=== PATIENT | female | born 1945 | race Caucasian/White ===

== ENCOUNTER → 2017-09-01 10:33 | Outpatient (CLI) | payer MEDICARE, OTHER, SELFPAY ==
[2017-09-01 11:21] LABS: Cholesterol 207 mg/dL (140-199); Glucose 83 mg/dL (80-110); HDL Cholesterol 66 mg/dL (40-60); LDL Cholesterol Calculated 119 mg/dL (<100); Triglycerides 110 mg/dL (35-150)
== END ==
PROVIDERS: PCP Family Medicine; Visit Provider Family Medicine
DX: Z13.6 Encounter for screening for cardiovascular disorders (principal); Z13.1 Encounter for screening for diabetes mellitus
CPT/HCPCS: 36415; 80061; 82947

== ENCOUNTER → 2017-09-06 10:27 | Outpatient (CLI) | payer MEDICARE, OTHER, SELFPAY ==
--- NOTE | 2017-09-06 | DI.MG.S_ITS ---
BILATERAL DIGITAL SCREENING MAMMOGRAM 3D/2D WITH CAD: 09/06/2017 CLINICAL: Patient presents for routine screening. S/P bilateral augmentation. Comparison is made to exams dated: 09/05/2016 mammogram, 09/03/2015 mammogram, and 08/25/2015 mammogram - [facility]. The tissue of both breasts is heterogeneously dense. This may lower the sensitivity of mammography. Current study was also evaluated with a Computer Aided Detection (CAD) system. Bilateral breast implants are intact. No significant masses, calcifications, or other findings are seen in either breast. There has been no significant interval change. IMPRESSION: NEGATIVE There is no mammographic evidence of malignancy. A 1 year screening mammogram is recommended. This exam was interpreted at Station ID: [id number]. NOTE: For mammograms, a report in lay terms will be sent to the patient. Approximately 15% of breast malignancies will not be visualized mammographically. In the management of a palpable breast mass, a negative mammogram must not discourage biopsy of a clinically suspicious lesion. Electronically Signed By: Ant miramontes/akila:09/06/2017 12:06:34 letter sent: Normal Exam ACR BI-RADS Category 1: Negative 3341F
== END ==
PROVIDERS: Family Provider Family Medicine; PCP Family Medicine; Visit Provider Family Medicine
DX: Z12.31 Encounter for screening mammogram for malignant neoplasm of breast (principal); Z98.82 Breast implant status
CPT/HCPCS: 77063; 77067

== ENCOUNTER → 2018-09-07 08:46 | Outpatient (CLI) | payer MEDICARE, OTHER, SELFPAY ==
--- NOTE | 2018-09-07 | DI.MG.S_ITS ---
BILATERAL DIGITAL SCREENING MAMMOGRAM 3D/2D WITH CAD WITH AUGMENTATION: 09/07/2018 CLINICAL: Patient presents for routine screening. S/P bilateral augmentation. Comparison is made to exams dated: 09/06/2017 mammogram, 09/05/2016 mammogram, and 09/03/2015 mammogram - [facility]. The tissue of both breasts is heterogeneously dense. This may lower the sensitivity of mammography. Current study was also evaluated with a Computer Aided Detection (CAD) system. Bilateral breast implants are intact. No significant masses, calcifications, or other findings are seen in either breast. There has been no significant interval change. IMPRESSION: NEGATIVE There is no mammographic evidence of malignancy. A 1 year screening mammogram is recommended. This exam was interpreted at Station ID: [id number]. NOTE: For mammograms, a report in lay terms will be sent to the patient. Approximately 15% of breast malignancies will not be visualized mammographically. In the management of a palpable breast mass, a negative mammogram must not discourage biopsy of a clinically suspicious lesion. Electronically Signed By: Ant miramontes/akila:09/07/2018 17:39:24 letter sent: Normal Exam ACR BI-RADS Category 1: Negative 3341F
[2018-09-07 09:42] LABS: BUN Creatinine Ratio 26.7 (6-22); Blood Urea Nitrogen 24 mg/dL (7-17); Carbon Dioxide 29 mmol/L (22-32); Chloride 104 mmol/L (98-107); Cholesterol 242 mg/dL (140-199); Estimated Glomerular Filt Rate > 60.0 mL/min (>60); Glucose 91 mg/dL (80-110); HDL Cholesterol 69 mg/dL (40-60); HEMOLYSIS < 15 (0-50); LDL Cholesterol Calculated 132 mg/dL (<100); Potassium 4.8 mmol/L (3.4-5.1); Sodium 142 mmol/L (137-145); Triglycerides 204 mg/dL (35-150)
== END ==
PROVIDERS: PCP Family Medicine; Visit Provider Family Medicine
DX: Z12.31 Encounter for screening mammogram for malignant neoplasm of breast (principal); Z98.82 Breast implant status; Z13.6 Encounter for screening for cardiovascular disorders; Z13.1 Encounter for screening for diabetes mellitus
CPT/HCPCS: 36415; 77063; 77067; 80048; 80061

== ENCOUNTER → 2018-11-26 09:42 | Outpatient (CLI) | payer MEDICARE, OTHER, SELFPAY | PROVIDERS: PCP Family Medicine; Visit Provider Family Medicine | DX: M85.851 Other specified disorders of bone density and structure, right thigh (principal); Z78.0 Asymptomatic menopausal state; Z82.62 Family history of osteoporosis | CPT/HCPCS: 77080 ==

== ENCOUNTER → 2019-09-09 09:44 | Outpatient (CLI) | payer MEDICARE, OTHER, SELFPAY ==
[2019-09-09 11:25] LABS: Add Manual Diff / Slide Review NO; Basophils Absolute Auto 100 /uL (0-100); Eosinophils Absolute Auto 200 /uL (0-450); Eosinophils Percent Auto 4.6 % (2-4); Hematocrit 39.1 % (36-46); Hemoglobin 13.2 g/dL (12.0-16.0); Lymphocytes Absolute Auto 1500 /uL (1100-4500); Lymphocytes Percent Auto 27.7 % (25-40); Mean Corpuscular HGB Conc 33.8 % (30-36); Mean Corpuscular Hemoglobin 34.2 PG (26-34); Mean Corpuscular Volume 101.2 fL (80-100); Monocytes Absolute Auto 600 /uL (0-900); Monocytes Percent Auto 10.5 % (3-14); Neutrophils Absolute Auto 3000 /uL (1500-7000); Neutrophils Percent Auto 56.2 % (50-75); Platelet Count 312 X10^3/uL (150-400); Red Blood Cell Count 3.87 X10^6/uL (4.0-5.2); Red Cell Distribution Width 13.6 % (11.6-14.8); White Blood Cell Count 5.4 X10^3/uL (4.5-11.0)
[2019-09-09 12:13] LABS: BUN Creatinine Ratio 21.7 (6-22); Blood Urea Nitrogen 15 mg/dL (7-17); Calcium 9.5 mg/dL (8.4-10.2); Carbon Dioxide 27 mmol/L (22-32); Chloride 108 mmol/L (98-107); Cholesterol 225 mg/dL (140-199); Estimated Glomerular Filt Rate > 60.0 mL/min (>60); Glucose 88 mg/dL (80-110); HDL Cholesterol 64 mg/dL (40-60); HEMOLYSIS < 15 (0-50); LDL Cholesterol Calculated 133 mg/dL (<100); Sodium 140 mmol/L (137-145); Triglycerides 141 mg/dL (35-150)
== END ==
PROVIDERS: PCP Family Medicine; Referring Provider Family Medicine; Visit Provider Family Medicine
DX: Z13.6 Encounter for screening for cardiovascular disorders (principal); E78.2 Mixed hyperlipidemia; Z79.1 Long term (current) use of non-steroidal anti-inflammatories (NSAID); R71.8 Other abnormality of red blood cells
CPT/HCPCS: 36415; 80048; 80061; 85025

== ENCOUNTER → 2019-09-10 10:57 | Outpatient (CLI) | payer MEDICARE, OTHER, SELFPAY ==
--- NOTE | 2019-09-10 | DI.MG.S_ITS ---
BILATERAL DIGITAL SCREENING MAMMOGRAM 3D/2D WITH CAD WITH AUGMENTATION: 09/10/2019 CLINICAL: Routine screening. Comparison is made to exams dated: 09/07/2018 mammogram, 09/06/2017 mammogram, 09/05/2016 mammogram, 08/25/2015 mammogram - [facility], and 08/22/2014 mammogram - [facility]. The tissue of both breasts is heterogeneously dense. This may lower the sensitivity of mammography. Current study was also evaluated with a Computer Aided Detection (CAD) system. Bilateral breast implants are intact. No significant masses, calcifications, or other findings are seen in either breast. There has been no significant interval change. IMPRESSION: NEGATIVE There is no mammographic evidence of malignancy. A 1 year screening mammogram is recommended. This exam was interpreted at Station ID: [id number]. NOTE: For mammograms, a report in lay terms will be sent to the patient. Approximately 15% of breast malignancies will not be visualized mammographically. In the management of a palpable breast mass, a negative mammogram must not discourage biopsy of a clinically suspicious lesion. Electronically Signed By: Gabino khan/akila:09/10/2019 14:07:42 letter sent: Normal Exam ACR BI-RADS Category 1: Negative 3341F
== END ==
PROVIDERS: PCP Family Medicine; Referring Provider Family Medicine; Visit Provider Family Medicine
DX: Z12.31 Encounter for screening mammogram for malignant neoplasm of breast (principal)
CPT/HCPCS: 77063; 77067

== ENCOUNTER → 2019-09-20 11:11 | Outpatient (CLI) | payer MEDICARE, OTHER, SELFPAY ==
--- NOTE | 2019-09-20 | DI.RAD.S_ITS ---
PROCEDURE: XR KNEE LT 3V INDICATIONS: Chronic PAIN OF LEFT KNEE TECHNIQUE: 3 views of the knee were acquired. COMPARISON: [facility], CR, XR HIP W PEL IF DONE LT 2V, 09/20/2019, 11:17. FINDINGS: Bones: No fractures or dislocations. No suspicious bony lesions. Mild joint space narrowing of the medial compartment. Soft tissues: Trace joint effusion. No suspicious soft tissue calcifications. 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 Trace effusion. Dictated by: Gabino Fernandez M.D. on 09/20/2019 at 13:08 Approved by: Gabino Fernandez M.D. on 09/20/2019 at 13:09
--- NOTE | 2019-09-20 | DI.RAD.S_ITS ---
PROCEDURE: XR HIP W PEL IF DONE LT 2V INDICATIONS: LEFT HIP PAIN TECHNIQUE: AP pelvis with lateral view(s) of the left hip(s). COMPARISON: None. FINDINGS: Bones: No fractures or dislocations. Pelvic ring appears intact. No suspicious bony lesions. No avascular necrosis of the lateral head. Mild degenerative change bilaterally. Soft tissues: The visualized bowel gas pattern is normal. No suspicious soft tissue calcifications. Clips in the lower abdomen. IMPRESSION: No acute osseous abnormality. Mild symmetric hip DJD. Dictated by: Gabino Fernandez M.D. on 09/20/2019 at 13:07 Approved by: Gabino Fernandez M.D. on 09/20/2019 at 13:08
== END ==
PROVIDERS: PCP Family Medicine; Referring Provider Family Medicine; Visit Provider Family Medicine
DX: M25.552 Pain in left hip (principal); M25.562 Pain in left knee; M16.0 Bilateral primary osteoarthritis of hip; M17.12 Unilateral primary osteoarthritis, left knee; G89.29 Other chronic pain
CPT/HCPCS: 73502; 73562

== ENCOUNTER → 2020-05-18 12:59 | Outpatient (CLI) | payer MEDICARE, OTHER, SELFPAY ==
[2020-05-18 15:59] LABS: COVID19 -Nasal RAPID Negative (Negative)
== END ==
PROVIDERS: PCP Family Medicine; Visit Provider Nurse Practitioner
DX: Z01.812 Encounter for preprocedural laboratory examination (principal); Z20.822 Contact with and (suspected) exposure to COVID-19
CPT/HCPCS: 87635; C9803

== ENCOUNTER 2020-05-20 08:19 | Day surgery (SDC) | payer MEDICARE, OTHER, SELFPAY ==
--- NOTE | 2020-05-20 | PATH_ITS ---
[facility] Accession Number: [id number] . 01 Material submitted: . PART A: gastrointestinal site - GASTRIC ANTRUM NODULE PART B: gastrointestinal site - GASTRIC ANTRUM AND BODY BIOPSY . 01 Clinical history: . B: BIOPSY FOR H.PYLORI . 02 Diagnosis: A. Stomach, Antral Nodule, Biopsy: Most consistent with early gastric hyperplastic polyp. No evidence of Helicobacter organisms on H/E stain. Negative for intestinal metaplasia. Negative for dysplasia or malignancy. . B. Stomach, Biopsies: Gastric antral and body mucosa with mild chronic inflammation. Negative for Helicobacter organisms by immunohistochemistry. Negative for intestinal metaplasia. Negative for dysplasia or malignancy. [facility] 05/26/2020 1422 Local . 02 Electronically signed: . Yaya Arriola MD, PhD, Pathologist NPI- [id number] . 01 Gross description: . Part A: GASTRIC ANTRUM NODULE: Received in formalin are 4 fragment(s) of alva, soft tissue measuring 0.1 x 0.1 x 0.1 cm to 0.2 x 0.2 x 0.2 cm submitted entirely in 1 cassette(s) Part B: GASTRIC ANTRUM AND BODY BIOPSY: Received in formalin are 4 fragment(s) of alva, soft tissue measuring 0.1 x 0.1 x 0.1 cm to 0.2 x 0.2 x 0.2 cm submitted entirely in 1 cassette(s) /LOUIE 05/23/2020 0140 Local . 02 Microscopic: . B. An immunohistochemical stain was performed to evaluate for Helicobacter organisms and is negative. The control stain showed appropriate reactivity. . * This test was developed and its performance characteristics determined by [employer]. It has not been cleared or approved by the U.S. Food and Drug Administration. The FDA has determined that such clearance or approval is not necessary. This test is used for clinical purposes. It should not be regarded as investigational or for research. . 02 Pathologist provided ICD-10: K29.70, K31.7 . 02 CPT . 874910, 602681, J29582 Performed at: 01 [facility] [address] [id number] MD Ant Guerrero MD Phone: [phone] Performed at: [address] [place] [id number] [place] [id number] MD Rosalie Gordillo MD Phone: [phone]
--- NOTE | 2020-05-20 07:54 | PM.HP.1 ---
History of Present Illness History of Present Illness Date Patient Seen: 05/20/20 Chief complaint: SDC Narrative: 74-year-old female seen by our service on 04/15/2020 due to epigastric pain not responding to PPI. She has a history of TIFF in 2010. She increased her dosing of omeprazole to twice daily which appears to have helped her symptoms. Patient History Medical History (Updated 05/20/20 @ 08:53 by Syeda Robin RN) Breast implant status Colon polyps Fractured skull GERD (gastroesophageal reflux disease) Surgical History (Updated 05/20/20 @ 08:52 by Syeda Robin RN) History of cholecystectomy History of facial surgery History of fundoplication History of hysterectomy History of rotator cuff surgery History of sinus surgery Family & Social History Family History (Updated 05/20/20 @ 08:54 by Syeda Robin RN) Father Alzheimer disease Macular degeneration disease Mother Colostomy in place Meds Home Medications and Allergies Home Medications Medication Instructions Recorded Confirmed Type alendronate 70 mg PO QWEEK 05/20/20 05/20/20 History ascorbic acid (vitamin C) [Vitamin 250 mg PO DAILY 05/20/20 05/20/20 History C] biotin 5,000 mcg SUBLINGUAL DAILY 05/20/20 05/20/20 History calcium 600 mg PO DAILY 05/20/20 05/20/20 History cholecalciferol (vitamin D3) 50 mcg PO DAILY 05/20/20 05/20/20 History [Vitamin D3] omeprazole 20 mg PO BID 05/20/20 05/20/20 History vitamin A-vitamin C-vit E-min 1 tab PO DAILY 05/20/20 05/20/20 History [Ocuvite] Allergies Allergy/AdvReac Type Severity Reaction Status Date / Time No Known Drug Allergies Allergy Verified 05/20/20 09:19 Exam Narrative Exam Narrative: General: Patient is well developed, not in apparent distress Cardiovascular: Regular rate and rhythm, no murmurs, rubs, or gallops; no evidence of edema; no palpable abdominal aortic aneurysm Gastrointestinal: Normoactive bowel sounds, soft, nontender, nondistended, no rebound tenderness, no hepatosplenomegaly, no evidence of hernia Assessment & Plan Assessment & Plan narrative: 74-year-old female here for further evaluation of epigastric pain. Regarding the procedure(s), the risks and potential complications, benefits, and alternatives (including not doing the procedure) were discussed with the patient. The risks include but are not limited to bleeding, splenic injury, infection, perforation which may require surgical intervention, missed lesions, and adverse reactions to sedative medicines. After a question and answer period, the patient agreed to proceed with the procedure(s) and gives informed consent.
[2020-05-20] MEDS: SODIUM CHLORIDE 0.9% 1,000 ML 70 ML IV (08:44)
[2020-05-20 09:00] VITALS: BP 127/74; PULSE 72; RESP 18; TEMP 36.2; O2SAT 99; BMI 26.5
--- NOTE | 2020-05-20 09:26 | P.OP.ENDO_ITS ---
Operative Date/Time/Diagnoses Date of procedure: 05/20/20 Procedure Notes Procedure in detail: Surgeon: Mayur Grimm MD Procedure: Esophagogastroduodenoscopy with biopsy Preoperative diagnosis: Epigastric pain, history of GERD Postoperative diagnosis: Fundoplication no longer present; antral nodule status post biopsy; gastrics biopsies taken to check for H pylori Medications: Conscious sedation using 6 mg IV of Midazolam and 100 mcg IV of Fentanyl; 4% lidocaine gargle; 4 mg IV ondansetron Preanesthesia Assessment An H and P was performed/updated and the Px?s ASA class is 2. The procedure was discussed in detail with the patient. The potential risks and complications inc luding infection, bleeding, missed lesions, perforation, need for surgery in case of perforation, prolonged hospital stay, and were explained. A brief question and answer period was allotted and once all questions were answered, informed consent was obtained. The patient was brought back to the procedure room and placed on standard monitoring. The patient?s vital signs were monitored continuously throughout the entire procedure. Prior to starting, a timeout was performed to confirm the patient?s identity, allergies, medications, and procedure. Procedure in detail The patient was placed in left lateral decubitus position and a bite block was inserted. The tip of the upper endoscope was placed into the mouth and advanced without difficulty under direct visualization into the esophagus. Esophagus: The esophageal mucosa appeared normal. The Z-line was regular at 40 cm Stomach: Mucosal antral nodule measuring 15 mm status post biopsy; gastric biopsies from the body and antrum taken to rule out H pylori; retroflexion was performed in the stomach which revealed evidence of prior TIF however the fundoplication does not appear to be present anymore Duodenum: Normal visualized duodenal mucosa to the 2nd portion The patient tolerated the procedure well and will be brought back to the recovery area to be discharged once criteria are met. The total physician intraservice time was 10 minutes. Complications There were no complications and estimated blood loss was minimal. Recommendations: Resume previous diet Continue outPx medications Change timing of omeprazole doses to 30 minutes prior to breakfast and 30 minutes prior to dinner Follow up pathology results Keep follow-up appointment with me (MELISSA GI) as previously scheduled An emergency contact number was given to the patient for any complications related to the procedure
[2020-05-20] MEDS: LIDOCAINE 4% SOLN 50 ML 20 ML TOP (09:35)
[2020-05-20] MEDS: ONDANSETRON 4 MG/2 ML INJ IV (09:38)
[2020-05-20] MEDS: fentaNYL 100 MCG/2 ML INJ IV (09:40)
[2020-05-20] MEDS: MIDAZOLAM 5 MG/5 ML VIAL IV ×2 (09:42→09:53)
[2020-05-20 09:59] VITALS: BP 100/52; PULSE 67; RESP 10; TEMP 35.8; O2SAT 98
[2020-05-20 10:05] VITALS: BP 95/51; PULSE 68; RESP 11; O2SAT 98
[2020-05-20 10:15] VITALS: BP 98/48; PULSE 70; RESP 10; O2SAT 100
[2020-05-20] MEDS: SODIUM CHLORIDE 0.9% 1,000 ML 42 ML IV (10:15)
[2020-05-20 10:20] VITALS: BP 106/53; PULSE 72; RESP 15; O2SAT 99
[2020-05-20 10:27] VITALS: BP 114/88; PULSE 71; RESP 18; TEMP 35.9; O2SAT 72
== END 2020-05-20 10:45 | disposition home or self-care (01) ==
PROVIDERS: PCP Family Medicine; Referring Provider Internal Medicine Gastroenterology; Visit Provider Internal Medicine Gastroenterology
PROC: 0DJ08ZZ Inspection of Upper Intestinal Tract, Via Natural or Artificial Opening Endoscopic (ICD-10-PCS; CPT 43235; principal; 2020-05-20 09:30)
DX: K29.50 Unspecified chronic gastritis without bleeding (principal); K21.9 Gastro-esophageal reflux disease without esophagitis
CPT/HCPCS: 43239; J2250; J2405; J3010

== ENCOUNTER → 2020-09-11 10:55 | Outpatient (CLI) | payer MEDICARE, OTHER, SELFPAY ==
--- NOTE | 2020-09-11 | DI.MG.S_ITS ---
BILATERAL DIGITAL SCREENING MAMMOGRAM 3D/2D WITH CAD WITH AUGMENTATION: 09/11/2020 CLINICAL: Routine screening. Comparison is made to exams dated: 09/10/2019 mammogram, 09/07/2018 mammogram, and 09/06/2017 mammogram - [facility]. The tissue of both breasts is heterogeneously dense. This may lower the sensitivity of mammography. Current study was also evaluated with a Computer Aided Detection (CAD) system. Bilateral breast implants are intact. No significant masses, calcifications, or other findings are seen in either breast. There has been no significant interval change. IMPRESSION: NEGATIVE There is no mammographic evidence of malignancy. A 1 year screening mammogram is recommended. This exam was interpreted at Station ID: [id number]. NOTE: For mammograms, a report in lay terms will be sent to the patient. Approximately 15% of breast malignancies will not be visualized mammographically. In the management of a palpable breast mass, a negative mammogram must not discourage biopsy of a clinically suspicious lesion. Electronically Signed By: Jerzy ko/akila:09/11/2020 11:51:44 letter sent: Normal Exam ACR BI-RADS Category 1: Negative 3341F
== END ==
PROVIDERS: PCP Family Medicine; Referring Provider Family Medicine; Visit Provider Family Medicine
DX: Z12.31 Encounter for screening mammogram for malignant neoplasm of breast (principal)
CPT/HCPCS: 77063; 77067

== ENCOUNTER → 2020-11-24 10:39 | Outpatient (CLI) | payer MEDICARE, OTHER, SELFPAY ==
[2020-11-24 10:54] LABS: Add Manual Diff / Slide Review NO; Basophils Absolute Auto 0 /uL (0-100); Basophils Percent Auto 0.5 % (0-2); Eosinophils Absolute Auto 100 /uL (0-450); Eosinophils Percent Auto 2.3 % (2-4); Hematocrit 41.1 % (36-46); Hemoglobin 13.7 g/dL (12.0-16.0); Lymphocytes Absolute Auto 1500 /uL (1100-4500); Lymphocytes Percent Auto 25.2 % (25-40); Mean Corpuscular HGB Conc 33.3 % (30-36); Mean Corpuscular Hemoglobin 33.7 PG (26-34); Monocytes Absolute Auto 600 /uL (0-900); Monocytes Percent Auto 11.2 % (3-14); Neutrophils Absolute Auto 3500 /uL (1500-7000); Neutrophils Percent Auto 60.8 % (50-75); Platelet Count 290 X10^3/uL (150-400); Red Blood Cell Count 4.07 X10^6/uL (4.0-5.2); Red Cell Distribution Width 13.8 % (11.6-14.8); White Blood Cell Count 5.7 X10^3/uL (4.5-11.0)
[2020-11-24 11:15] LABS: BUN Creatinine Ratio 31.8 (6-22); Blood Urea Nitrogen 21 mg/dL (7-17); Calcium 9.7 mg/dL (8.4-10.2); Carbon Dioxide 29 mmol/L (22-32); Chloride 104 mmol/L (98-107); Cholesterol 230 mg/dL (140-199); Estimated Glomerular Filt Rate > 60.0 mL/min (>60); Glucose 95 mg/dL (80-110); HDL Cholesterol 82 mg/dL (40-60); HEMOLYSIS < 15 (0-50); LDL Cholesterol Calculated 124 mg/dL (<100); Potassium 4.5 mmol/L (3.4-5.1); Sodium 139 mmol/L (137-145); Triglycerides 121 mg/dL (35-150)
== END ==
PROVIDERS: PCP Family Medicine; Referring Provider Family Medicine; Visit Provider Family Medicine
DX: K21.9 Gastro-esophageal reflux disease without esophagitis (principal); Z13.6 Encounter for screening for cardiovascular disorders; M81.0 Age-related osteoporosis without current pathological fracture
CPT/HCPCS: 36415; 80048; 80061; 85025

== ENCOUNTER → 2020-12-07 10:33 | Outpatient (CLI) | payer MEDICARE, OTHER, SELFPAY | PROVIDERS: PCP Family Medicine; Referring Provider Family Medicine; Visit Provider Family Medicine | DX: Z78.0 Asymptomatic menopausal state (principal); M85.852 Other specified disorders of bone density and structure, left thigh; M85.851 Other specified disorders of bone density and structure, right thigh; M85.88 Other specified disorders of bone density and structure, other site | CPT/HCPCS: 77080 ==

== ENCOUNTER → 2021-05-05 12:28 | Outpatient (CLI) | payer MEDICARE, OTHER, SELFPAY ==
--- NOTE | 2021-05-05 | DI.MRI.S_ITS ---
PROCEDURE: MR KNEE RT WO CON INDICATIONS: Sprain of medial collateral ligament of right knee, initial TECHNIQUE: Noncontrast sagittal PD fast spin echo and T2 fast spin echo with fat saturation, sagittal 3-D FLASH with fat saturation; coronal T1 spin echo and PD fast spin echo with fat saturation, and axial PD fast spin echo with fat saturation through the knee. COMPARISON: None. FINDINGS: Image quality: Excellent. Menisci: Subtle signal abnormality within posterior horn of medial meniscus is seen which does not extend to articulating surface to meet the criteria for focal meniscal tear. Lateral meniscus is intact.. The meniscal root ligaments appear intact. Cruciate ligaments: The anterior and posterior cruciate ligaments appear intact. Medial structures: Low to moderate grade MCL sprain is seen with thickened ligament and surrounding edema . The posterior oblique ligament, semimembranosus tendon insertions, oblique popliteal ligament, and meniscocapsular junction appear intact. Visualized portions of the pes anserinus tendons appear normal. No abnormal bursal fluid. Lateral structures: The lateral collateral ligament, long and short heads of the biceps femoris tendon appear intact. The popliteus tendon appears normal; the popliteofibular ligament appears intact. The posterosuperior and anteroinferior popliteomeniscal fascicles appear intact. The arcuate and fabellofibular ligaments appear intact, on either side of the lateral inferior geniculate artery. Iliotibial band appears normal. Anterior structures: Mild distal quadriceps tendinosis at its superior patellar insertion is seen. Tendinosis is also seen involving proximal patellar tendon at its inferior patellar insertion. Patellar alignment is normal. No femoral trochlear dysplasia or ventral trochlear prominence. No edema in the infrapatellar fat pad. Bones and cartilage: No bone marrow contusions or fractures. Mild tricompartmental osteoarthritis and low-grade chondromalacia is seen. Joint space: There is small amount of joint fluid. No Nagle's cyst. Normal appearing synovial plicae are incidentally noted. IMPRESSION: 1. Low to moderate grade MCL sprain/partial-thickness tear. Cruciate ligaments are intact. 2. Distal quadriceps tendinosis at its superior patellar insertion. Proximal patellar tendinosis at its inferior patellar insertion. 3. Degenerative changes in posterior horn of medial meniscus which does not meet MR criteria for focal meniscal tear. Lateral meniscus is intact. 4. Mild tricompartmental osteoarthritis and low-grade chondromalacia. Small joint effusion. Dictated by: Giovanni Yoo M.D. on 05/05/2021 at 13:18 Approved by: Giovanni Yoo M.D. on 05/05/2021 at 14:13
== END ==
PROVIDERS: PCP Family Medicine; Referring Provider Orthopaedic Surgery; Visit Provider Orthopaedic Surgery
DX: S83.411A Sprain of medial collateral ligament of right knee, initial encounter (principal); M17.11 Unilateral primary osteoarthritis, right knee; M94.261 Chondromalacia, right knee; M25.461 Effusion, right knee
CPT/HCPCS: 73721

== ENCOUNTER → 2021-09-13 10:49 | Outpatient (CLI) | payer MEDICARE, OTHER, SELFPAY ==
--- NOTE | 2021-09-13 | DI.MG.S_ITS ---
BILATERAL DIGITAL SCREENING MAMMOGRAM 3D/2D WITH CAD WITH AUGMENTATION: 09/13/2021 CLINICAL: Routine screening. Comparison is made to exams dated: 09/11/2020 mammogram, 09/10/2019 mammogram, and 09/07/2018 mammogram - [facility]. The tissue of both breasts is heterogeneously dense. This may lower the sensitivity of mammography. Current study was also evaluated with a Computer Aided Detection (CAD) system. Bilateral breast implants are intact. There are benign vascular calcifications in both breasts. No significant masses, calcifications, or other findings are seen in either breast. There has been no significant interval change. IMPRESSION: BENIGN There is no mammographic evidence of malignancy. A 1 year screening mammogram is recommended. Based on the Tyrer Cuzick model (a risk assessment model) the patient's lifetime risk is 3.2% and her 10 year risk is 2.9%. According to the ACR, ACS, and NCCN guidelines, an annual breast MRI exam along with mammogram is recommended if the patient's lifetime risk is 20% or greater. This exam was interpreted at Station ID: [id number]. NOTE: For mammograms, a report in lay terms will be sent to the patient. Approximately 15% of breast malignancies will not be visualized mammographically. In the management of a palpable breast mass, a negative mammogram must not discourage biopsy of a clinically suspicious lesion. Electronically Signed By: Reji lai/akila:09/13/2021 12:19:59 letter sent: Normal Exam ACR BI-RADS Category 2: Benign Finding(s) 3342F
== END ==
PROVIDERS: PCP Family Medicine; Referring Provider Family Medicine; Visit Provider Family Medicine
DX: Z12.31 Encounter for screening mammogram for malignant neoplasm of breast (principal)
CPT/HCPCS: 77063; 77067

== ENCOUNTER → 2021-12-03 09:24 | Outpatient (CLI) | payer MEDICARE, OTHER, SELFPAY ==
[2021-12-03 10:39] LABS: BUN Creatinine Ratio 24.4 (6-22); Blood Urea Nitrogen 19 mg/dL (7-17); Calcium 9.3 mg/dL (8.4-10.2); Carbon Dioxide 29 mmol/L (22-32); Chloride 103 mmol/L (98-107); Cholesterol 249 mg/dL (140-199); Estimated Glomerular Filt Rate > 60 mL/min (>60); Glucose 83 mg/dL (80-110); HDL Cholesterol 57 mg/dL (40-60); HEMOLYSIS < 15 (0-50); LDL Cholesterol Calculated 150 mg/dL (<100); Sodium 141 mmol/L (137-145); Triglycerides 208 mg/dL (35-150)
== END ==
PROVIDERS: PCP Family Medicine; Referring Provider Family Medicine; Visit Provider Family Medicine
DX: Z13.6 Encounter for screening for cardiovascular disorders (principal); M81.0 Age-related osteoporosis without current pathological fracture
CPT/HCPCS: 36415; 80048; 80061

== ENCOUNTER → 2022-09-26 10:56 | Outpatient (CLI) | payer MEDICARE, SELFPAY ==
--- NOTE | 2022-09-26 | DI.MG.S_ITS ---
BILATERAL DIGITAL SCREENING MAMMOGRAM 3D/2D WITH CAD WITH AUGMENTATION: 09/26/2022 CLINICAL: Routine screening. Comparison is made to exams dated: 09/13/2021 mammogram, 09/11/2020 mammogram, and 09/10/2019 mammogram - [facility]. Both breasts are heterogeneously dense, which may obscure small masses (category c / 51-75% glandular tissue). Current study was also evaluated with a Computer Aided Detection (CAD) system. Bilateral breast implants are intact. There are benign vascular calcifications in both breasts. No significant masses, calcifications, or other findings are seen in either breast. There has been no significant interval change. IMPRESSION: BENIGN There is no mammographic evidence of malignancy. A 1 year screening mammogram is recommended. Based on the Tyrer Cuzick model (a risk assessment model) the patient's lifetime risk is 3.0% and her 10 year risk is 3.0%. According to the ACR, ACS, and NCCN guidelines, an annual breast MRI exam along with mammogram is recommended if the patient's lifetime risk is 20% or greater. This exam was interpreted at Station ID: [id number]. NOTE: For mammograms, a report in lay terms will be sent to the patient. Approximately 15% of breast malignancies will not be visualized mammographically. In the management of a palpable breast mass, a negative mammogram must not discourage biopsy of a clinically suspicious lesion. Electronically Signed By: Vega irving/akila:09/26/2022 11:54:51 letter sent: Normal Exam ACR BI-RADS Category 2: Benign Finding(s) 3342F
== END ==
PROVIDERS: PCP Family Medicine; Referring Provider Family Medicine; Visit Provider Family Medicine
DX: Z12.31 Encounter for screening mammogram for malignant neoplasm of breast (principal)
CPT/HCPCS: 77063; 77067

== ENCOUNTER → 2022-12-07 09:45 | Outpatient (CLI) | payer MEDICARE, SELFPAY ==
[2022-12-07 11:01] LABS: Add Manual Diff / Slide Review NO; Basophils Absolute Auto 0 /uL (0-100); Basophils Percent Auto 0.8 % (0-2); Eosinophils Absolute Auto 200 /uL (0-450); Hematocrit 40.8 % (36-46); Lymphocytes Absolute Auto 1500 /uL (1100-4500); Lymphocytes Percent Auto 25.7 % (25-40); Mean Corpuscular HGB Conc 34.2 % (30-36); Mean Corpuscular Hemoglobin 34.7 PG (26-34); Mean Corpuscular Volume 101.4 fL (80-100); Monocytes Absolute Auto 500 /uL (0-900); Monocytes Percent Auto 9.1 % (3-14); Neutrophils Absolute Auto 3500 /uL (1500-7000); Neutrophils Percent Auto 60.4 % (50-75); Platelet Count 313 X10^3/uL (150-400); Red Blood Cell Count 4.02 X10^6/uL (4.0-5.2); Red Cell Distribution Width 13.6 % (11.6-14.8); White Blood Cell Count 5.8 X10^3/uL (4.5-11.0)
[2022-12-07 11:32] LABS: Alanine Aminotransferase 17 IU/L (<35); Albumin 4.4 g/dL (3.5-5.0); Albumin Globulin Ratio 1.6 (1.0-2.8); Alkaline Phosphatase 56 U/L (38-126); Aspartate Aminotransferase 20 IU/L (14-36); BUN Creatinine Ratio 28.8 (6-22); Bilirubin Total 0.4 mg/dL (0.2-1.3); Blood Urea Nitrogen 21 mg/dL (7-17); Calcium 9.8 mg/dL (8.4-10.2); Carbon Dioxide 26 mmol/L (22-32); Chloride 105 mmol/L (98-107); Cholesterol 200 mg/dL (140-199); Estimated Glomerular Filt Rate > 60 mL/min (>60); Globulin 2.8 g/dL (1.7-4.1); Glucose 89 mg/dL (80-110); HDL Cholesterol 66 mg/dL (40-60); HEMOLYSIS < 15 (0-50); LDL Cholesterol Calculated 107 mg/dL (<100); Potassium 4.5 mmol/L (3.4-5.1); Sodium 139 mmol/L (137-145); Total Protein 7.2 g/dL (6.3-8.2); Triglycerides 135 mg/dL (35-150)
== END ==
PROVIDERS: PCP Family Medicine; Referring Provider Family Medicine; Visit Provider Family Medicine
DX: Z79.83 Long term (current) use of bisphosphonates (principal); E78.2 Mixed hyperlipidemia
CPT/HCPCS: 36415; 80053; 80061; 85025

== ENCOUNTER → 2023-02-15 10:29 | Outpatient (CLI) | payer MEDICARE, SELFPAY ==
[2023-02-16 09:08] LABS: Cholesterol,Total 195 mg/dL (100-199); HDL Cholesterol 65 mg/dL (>39); LDL Cholesterol Cal 111 mg/dL (0-99); Triglycerides 108 mg/dL (0-149); VLDL Cholesterol Cal 19 mg/dL (5-40)
== END ==
PROVIDERS: Family Provider Family Medicine; PCP Family Medicine; Referring Provider Family Medicine; Visit Provider Family Medicine
DX: E78.2 Mixed hyperlipidemia (principal)
CPT/HCPCS: 36415; 80061

== ENCOUNTER 2023-03-22 10:30 | Outpatient (RCR) | payer MEDICARE, SELFPAY ==
--- NOTE | 2023-02-22 14:17 | PT.OIE ---
Current Diagnoses Segmental and somatic dysfunction of pelvic region (02/22/23) Nocturia (02/22/23) Hesitancy of micturition (02/22/23) Past Medical History (Last Updated 05/20/20 @ 08:53 by Syeda Robin, RN) Breast implant status Colon polyps Fractured skull GERD (gastroesophageal reflux disease) Past Surgical History (Last Updated 05/20/20 @ 08:52 by Syeda Robin, RN) History of cholecystectomy History of facial surgery History of fundoplication History of hysterectomy History of rotator cuff surgery History of sinus surgery Visit Care Team Role Provider Type Mckenzie Mann MD Attending Provider Non-Staff Primary Care Provider Referring Provider Specialty: [facility] Practice Address: [address] [place] [address] , [place], [address] Email: Physical Therapy Initial Evaluation PT-OP-A Visit Information Start: 02/22/23 12:04 Freq: Status: Active Protocol: Document 02/22/23 12:00 [facility] (Rec: 02/22/23 12:29 [facility] [id number]) Out-Patient Physical Therapy Visit Information Visit Information Visit Type Initial Evaluation Visit Start Time 12:00 Visit Stop Time 12:45 Total Visit Minutes 45 Visit Number 1 Evaluation Information Evaluation Date 02/22/23 PT-OP-B Current Condition Start: 02/22/23 12:04 Freq: Status: Active Protocol: Document 02/22/23 12:00 [facility] (Rec: 02/22/23 12:27 [facility] [id number]) Current Condition History of Current Condition Onset Date chronic Current Complaints incomplete bladder emptying, nocturia History of Current Condition pt feels that she is not fully emptying her bladder all the way, she wakes 3-4 times per night. It started at age 61. She notes leakage with urgency and with sneezing. If she hasn't used her estrodial than her tissue will be dry and irritated. Hx of hysterectomy at age 43, 2 vaginal deliveries, gall bladder removal. She has a history of hemmhroids Treatment Goals Patient/Caregiver Goals Improved ability to fully empty the bladder and decreased nocturia PT-OP-C Subjective Start: 02/22/23 12:04 Freq: Status: Active Protocol: Document 02/22/23 12:00 [facility] (Rec: 02/28/23 10:17 [facility] [id number]) Patient Questionnaires Pelvic Pain and Urgency/Frequency Patient Symptom Scale Pelvic Pain Score 10 PT-OP-I Pelvic Floor Start: 02/22/23 12:04 Freq: Status: Active Protocol: Document 02/22/23 12:00 [facility] (Rec: 02/28/23 10:17 [facility] [id number]) Pelvic Floor Assessment Urine Pelvic Floor Surgery Yes: hysterectomy Urinary Symptoms Urge Sensation,Incomplete Emptying Other Urinary Symptoms leakage with strong cough and sneeze, strong urge to go and with intercourse Leakage Size Medium Leakage Cause Sneeze,Urge Voiding Frequency 3-4 per day Nocturia 3-4 Pelvic Clock Pelvic Clock 12-3 Guarding Pelvic Clock 3-6 Guarding Pelvic Clock 6-9 Guarding Pelvic Clock 9-12 Guarding SEMG (uV) 10 Second Contraction 23.2 Relaxation Poor/Slow SEMG Stability of Rest Poor/Slow Contraction Ability Voluntary Contraction Moderate Voluntary Relaxation Moderate Manual Muscle Testing Left 3 Manual Muscle Testing Right 3 Manual Muscle Testing Anterior 3 Manual Muscle Testing Posterior 3 Muscle Endurance (Seconds) 8 Comments Pelvic Floor Comments Cherry is able to contract and hold her pelvic floor approx 8 seconds but she has difficulty with pelvic floor relaxation and presents with muscle tightness and tissue irritation PT-OP-Q Treatments Start: 02/22/23 12:04 Freq: Status: Active Protocol: Document 02/22/23 12:00 [facility] (Rec: 02/22/23 12:59 [facility] [id number]) Therapeutic Exercises Supine Exercises pelvic floor long holds Reps/Minutes pelvic floor long holdsx x 10 sec hold and 10 sec relax Self-Care/Home Management Treatment Education Patient Education Home Exercise Program Other Education education on use of a squatty potty for home as Cherry has a elevated toilet seat at home, education on raising arms up and folding over to assist with full bladder emptying PT-OP-T Assessment and Plan Start: 02/22/23 12:04 Freq: Status: Active Protocol: Document 02/22/23 12:00 [facility] (Rec: 02/28/23 10:22 [facility] [id number]) Physical Therapy Assessment Rehab Potential Rehabilitation Potential Excellent Evaluation Complexity Number of Personal Factors/Comorbidities 0 Number of Body Systems Impaired 1-2 Clinical Presentation at Evaluation Stable Impairments Impairments Activity Tolerance,Pain,Soft Tissue Mobility,Strength,Tone Other Impairments nocturia, urge and stress incontinence and inability to fully empty the bladder Goals 3 Impairment Nocturia with patient waking up 4 times per night to void Gas Pump Attendant Goal (LTG) Cherry reports a reduction of urinary urgency and is able to decrease her night time voidings from 4 times per night to 1-2 times per night LTG Duration 8 weeks 2 Impairment incomplete bladder emptying with residual urgnecy Short Term Goal (STG) Cherry is educated on toileting strategies to help with fully voiding as well, bladder retraining, and relaxation of the pelvic floor with stretches STG Duration 4 weeks Jail Goal (LTG) Cherry is able to fully empty her bladder when voiding and has decreased complaints of urgency LTG Duration 8 weeks 1 Impairment Decreased endurance of the pelvic floor muscles Short Term Goal (STG) Cherry is able to sustain a pelvic floor contraction in supine for 10 seconds STG Duration 4 weeks Gas Pump Attendant Goal (LTG) Cherry is able to sustain a pelvic floor contraction in standing x 5 seconds LTG Duration 8 weeks Assessment Summary Assessment Cherry is a 77 year old female who presents to Physical Therapy with nocturia x 4 times per night and feeling like she is not fully able to empty her bladder. She also notes irritation with and after intercourse of her tissues. She does also experience urinary leakage with strong cough or sneeze and also with urgency. Cherry does also use estrace cream but has not for the past few weeks as she has been focused on taking care of her following his total knee replacement With exam today she is able to contract all aspects of the pelvic floor but has difficulty with pelvic floor relaxation. There is tightness noted throughout the pelvic floor as well as a thinning of the tissues. She has difficulty sustaining a pelvic floor contraction for 10 seconds. Treatment will focus on toileting strategies for pelvic floor relaxation with voiding to help improve voiding. She does have a raised toilet seat which makes it more difficult to relax the pelvic floor so we discussed using a squatty potty. She will be given stretches for the pelvic floor and treatment will also focus on pelvic floor endurance training. I have encourged her to continue using the estrogen cream. Cherry is a good candidate for Pelvic PT Physical Therapy Plan Frequency and Duration Frequency of Treatment 1x/Week Duration of treatment (weeks) 8 Plan of Care Start Date 02/22/23 Plan of Care End Date 04/19/23 Therapeutic Interventions Therapeutic Interventions Home Exercise Program, Neuromuscular Re-education, Self-Care/Home Management, Therapeutic Exercises Modalities Biofeedback Next Visit Focus/Plan Next Note Type Treatment Note Next Visit Plan work on full relaxation of the pelvic floor with stretches for the hips, diaphragmatic breathing, endurance training of the pelvic floor with emphasis on full relaxation after a contraction
--- NOTE | 2023-02-22 14:18 | PT.OPPOC ---
Physical, Occupational & Speech Therapy At [facility] Current Diagnoses Segmental and somatic dysfunction of pelvic region (02/22/23) Nocturia (02/22/23) Hesitancy of micturition (02/22/23) Visit Care Team Role Provider Type Mckenzie Mann MD Attending Provider Non-Staff Primary Care Provider Referring Provider Specialty: Family Practice Address: [address] [place] [address] , [place], [address] Email: Plan Of Care PT-OP-T Assessment and Plan Start: 02/22/23 12:04 Freq: Status: Active Protocol: Document 02/22/23 12:00 [facility] (Rec: 02/28/23 10:22 [facility] [id number]) Physical Therapy Assessment Rehab Potential Rehabilitation Potential Excellent Evaluation Complexity Number of Personal Factors/Comorbidities 0 Number of Body Systems Impaired 1-2 Clinical Presentation at Evaluation Stable Impairments Impairments Activity Tolerance,Pain,Soft Tissue Mobility,Strength,Tone Other Impairments nocturia, urge and stress incontinence and inability to fully empty the bladder Goals 3 Impairment Nocturia with patient waking up 4 times per night to void Crystal Growing Technician Goal (LTG) Cherry reports a reduction of urinary urgency and is able to decrease her night time voidings from 4 times per night to 1-2 times per night LTG Duration 8 weeks 2 Impairment incomplete bladder emptying with residual urgency Short Term Goal (STG) Cherry is educated on toileting strategies to help with fully voiding as well, bladder retraining, and relaxation of the pelvic floor with stretches STG Duration 4 weeks Prison Goal (LTG) Cherry is able to fully empty her bladder when voiding and has decreased complaints of urgency LTG Duration 8 weeks 1 Impairment Decreased endurance of the pelvic floor muscles Short Term Goal (STG) Cherry is able to sustain a pelvic floor contraction in supine for 10 seconds STG Duration 4 weeks Crystal Growing Technician Goal (LTG) Cherry is able to sustain a pelvic floor contraction in standing x 5 seconds LTG Duration 8 weeks Assessment Summary Assessment Cherry is a 77 year old female who presents to Physical Therapy with nocturia x 4 times per night and feeling like she is not fully able to empty her bladder. She also notes irritation with and after intercourse of her tissues. She does also experience urinary leakage with strong cough or sneeze and also with urgency. Cherry does also use estrace cream but has not for the past few weeks as she has been focused on taking care of her following his total knee replacement With exam today she is able to contract all aspects of the pelvic floor but has difficulty with pelvic floor relaxation. There is tightness noted throughout the pelvic floor as well as a thinning of the tissues. She has difficulty sustaining a pelvic floor contraction for 10 seconds. Treatment will focus on toileting strategies for pelvic floor relaxation with voiding to help improve voiding. She does have a raised toilet seat which makes it more difficult to relax the pelvic floor so we discussed using a squatty potty. She will be given stretches for the pelvic floor and treatment will also focus on pelvic floor endurance training. I have encouraged her to continue using the estrogen cream. Cherry is a good candidate for Pelvic PT Physical Therapy Plan Frequency and Duration Frequency of Treatment 1x/Week Duration of treatment (weeks) 8 Plan of Care Start Date 02/22/23 Plan of Care End Date 04/19/23 Therapeutic Interventions Therapeutic Interventions Home Exercise Program, Neuromuscular Re-education, Self-Care/Home Management, Therapeutic Exercises Modalities Biofeedback Next Visit Focus/Plan Next Note Type Treatment Note Next Visit Plan work on full relaxation of the pelvic floor with stretches for the hips, diaphragmatic breathing, endurance training of the pelvic floor with emphasis on full relaxation after a contraction Plan of Care Dates Plan of Care Start Date 02/22/23 Plan of Care End Date 04/19/23 Electronically Signed by: Becky Caban, PT 02/28/23 5439 If you are in agreement with this Plan of Care, please return a signed and dated copy. I have reviewed this Plan of Care and certify that the skilled therapy services above are required to meet the patient?s needs. Physician Signature Date Printed Name and Credentials Clinical Instructor Signature Printed Name and Credentials
--- NOTE | 2023-03-01 12:56 | PT.OTN ---
Current Diagnoses Segmental and somatic dysfunction of pelvic region (03/01/23) Nocturia (03/01/23) Hesitancy of micturition (03/01/23) Physical Therapy Treatment Note PT-OP-A Visit Information Start: 02/22/23 12:04 Freq: Status: Active Protocol: Document 03/01/23 12:00 [facility] (Rec: 03/01/23 12:54 [facility] [id number]) Out-Patient Physical Therapy Visit Information Visit Information Visit Type Treatment Note Visit Start Time 12:00 Visit Stop Time 12:45 Total Visit Minutes 45 Visit Number 2 PT-OP-B Current Condition Start: 02/22/23 12:04 Freq: Status: Active Protocol: Document 02/22/23 12:00 [facility] (Rec: 02/22/23 12:27 [facility] [id number]) Current Condition History of Current Condition Onset Date chronic Current Complaints incomplete bladder emptying, nocturia History of Current Condition pt feels that she is not fully emptying her bladder all the way, she wakes 3-4 times per night. It started at age 61. She notes leakage with urgency and with sneezing. If she hasn't used her estrodial than her tissue will be dry and irritated. Hx of hysterectomy at age 43, 2 vaginal deliveries, gall bladder removal. She has a history of hemmhroids Treatment Goals Patient/Caregiver Goals Improved ability to fully empty the bladder and decreased nocturia PT-OP-C Subjective Start: 02/22/23 12:04 Freq: Status: Active Protocol: Document 03/01/23 12:00 [facility] (Rec: 03/01/23 12:55 [facility] [id number]) OP-PT Subjective Patient Comments Patient Comments Cherry notes she has been doing her pelvic floor exercises, she brings back in her bladder diary PT-OP-I Pelvic Floor Start: 02/22/23 12:04 Freq: Status: Active Protocol: Document 02/22/23 12:00 [facility] (Rec: 02/28/23 10:17 [facility] [id number]) Pelvic Floor Assessment Urine Pelvic Floor Surgery Yes: hysterectomy Urinary Symptoms Urge Sensation,Incomplete Emptying Other Urinary Symptoms leakage with strong cough and sneeze, strong urge to go and with intercourse Leakage Size Medium Leakage Cause Sneeze,Urge Voiding Frequency 3-4 per day Nocturia 3-4 Pelvic Clock Pelvic Clock 12-3 Guarding Pelvic Clock 3-6 Guarding Pelvic Clock 6-9 Guarding Pelvic Clock 9-12 Guarding SEMG (uV) 10 Second Contraction 23.2 Relaxation Poor/Slow SEMG Stability of Rest Poor/Slow Contraction Ability Voluntary Contraction Moderate Voluntary Relaxation Moderate Manual Muscle Testing Left 3 Manual Muscle Testing Right 3 Manual Muscle Testing Anterior 3 Manual Muscle Testing Posterior 3 Muscle Endurance (Seconds) 8 Comments Pelvic Floor Comments Cherry is able to contract and hold her pelvic floor approx 8 seconds but she has difficulty with pelvic floor relaxation and presents with muscle tightness and tissue irritation PT-OP-Q Treatments Start: 02/22/23 12:04 Freq: Status: Active Protocol: Document 03/01/23 12:00 [facility] (Rec: 03/01/23 12:54 [facility] [id number]) Therapeutic Exercises Supine Exercises templates for coordiation and eccentric control Reps/Minutes x 8 min quick pelvic floor contractions Reps/Minutes x 10 reps 2 sec on and 2 sec off piriformis stretch Reps/Minutes hold 1-2 min modified squat stretch Reps/Minutes hold 1-2 min pelvic floor long holds Reps/Minutes long holds 19 uv average and 30 max Comments able to relax to baseline Self-Care/Home Management Treatment Education Patient Education Home Exercise Program Other Education review of toileting stratagies , review of bladder diary, pt was given a HEP for pelvic floor stretches. Pt was educated on rubbing the estrace cream into her pelvic floor to make sure she gets it on the tissue. PT-OP-T Assessment and Plan Start: 02/22/23 12:04 Freq: Status: Active Protocol: Document 03/01/23 12:00 [facility] (Rec: 03/01/23 12:54 [facility] [id number]) Physical Therapy Assessment Goals 3 Impairment Nocturia with patient waking up 4 times per night to void Intermediate Goal (LTG) Cherry reports a reduction of urinary urgency and is able to decrease her night time voidings from 4 times per night to 1-2 times per night LTG Duration 8 weeks 2 Impairment incomplete bladder emptying with residual urgnecy Short Term Goal (STG) Cherry is educated on toileting strategies to help with fully voiding as well, bladder retraining, and relaxation of the pelvic floor with stretches STG Duration 4 weeks Intermediate Goal (LTG) Cherry is able to fully empty her bladder when voiding and has decreased complaints of urgency LTG Duration 8 weeks 1 Impairment Decreased endurance of the pelvic floor muscles Short Term Goal (STG) Cherry is able to sustain a pelvic floor contraction in supine for 10 seconds STG Duration 4 weeks Intermediate Goal (LTG) Cherry is able to sustain a pelvic floor contraction in standing x 5 seconds LTG Duration 8 weeks Assessment Summary Assessment I discussed rubbing in the estrogen cream today as Cherry notes when she gets up to void she is losing a lot of the cream in the toilet. She brings back in her bladder diary and is voiding approx 2 times at night. She is working on drinking water during the day. I added in hip stretches for her today and she was able to get her resting tone down to baseline Physical Therapy Plan Frequency and Duration Frequency of Treatment 1x/Week Duration of treatment (weeks) 8 Plan of Care Start Date 02/22/23 Plan of Care End Date 04/19/23 Next Visit Focus/Plan Next Note Type Treatment Note Next Visit Plan review stretches and continue working on endurance training of the pelvic floor
--- NOTE | 2023-03-22 11:07 | PT.OTN ---
Current Diagnoses Segmental and somatic dysfunction of pelvic region (03/22/23) Nocturia (03/22/23) Hesitancy of micturition (03/22/23) Physical Therapy Treatment Note PT-OP-A Visit Information Start: 02/22/23 12:04 Freq: Status: Active Protocol: Document 03/22/23 10:33 [facility] (Rec: 03/22/23 11:04 [facility] [id number]) Out-Patient Physical Therapy Visit Information Visit Information Visit Type Treatment Note Visit Start Time 10:35 Visit Stop Time 10:55 Total Visit Minutes 20 Visit Number 3 PT-OP-B Current Condition Start: 02/22/23 12:04 Freq: Status: Active Protocol: Document 02/22/23 12:00 [facility] (Rec: 02/22/23 12:27 [facility] [id number]) Current Condition History of Current Condition Onset Date chronic Current Complaints incomplete bladder emptying, nocturia History of Current Condition pt feels that she is not fully emptying her bladder all the way, she wakes 3-4 times per night. It started at age 61. She notes leakage with urgency and with sneezing. If she hasn't used her estrodial than her tissue will be dry and irritated. Hx of hysterectomy at age 43, 2 vaginal deliveries, gall bladder removal. She has a history of hemmhroids Treatment Goals Patient/Caregiver Goals Improved ability to fully empty the bladder and decreased nocturia PT-OP-C Subjective Start: 02/22/23 12:04 Freq: Status: Active Protocol: Document 03/22/23 10:33 [facility] (Rec: 03/22/23 11:04 [facility] [id number]) OP-PT Subjective Patient Comments Patient Comments Cherry notes she is feeling good with her HEP and is ready to DC PT PT-OP-I Pelvic Floor Start: 02/22/23 12:04 Freq: Status: Active Protocol: Document 02/22/23 12:00 [facility] (Rec: 02/28/23 10:17 [facility] [id number]) Pelvic Floor Assessment Urine Pelvic Floor Surgery Yes: hysterectomy Urinary Symptoms Urge Sensation,Incomplete Emptying Other Urinary Symptoms leakage with strong cough and sneeze, strong urge to go and with intercourse Leakage Size Medium Leakage Cause Sneeze,Urge Voiding Frequency 3-4 per day Nocturia 3-4 Pelvic Clock Pelvic Clock 12-3 Guarding Pelvic Clock 3-6 Guarding Pelvic Clock 6-9 Guarding Pelvic Clock 9-12 Guarding SEMG (uV) 10 Second Contraction 23.2 Relaxation Poor/Slow SEMG Stability of Rest Poor/Slow Contraction Ability Voluntary Contraction Moderate Voluntary Relaxation Moderate Manual Muscle Testing Left 3 Manual Muscle Testing Right 3 Manual Muscle Testing Anterior 3 Manual Muscle Testing Posterior 3 Muscle Endurance (Seconds) 8 Comments Pelvic Floor Comments Cherry is able to contract and hold her pelvic floor approx 8 seconds but she has difficulty with pelvic floor relaxation and presents with muscle tightness and tissue irritation PT-OP-Q Treatments Start: 02/22/23 12:04 Freq: Status: Active Protocol: Document 03/22/23 10:33 [facility] (Rec: 03/22/23 11:04 [facility] [id number]) Therapeutic Exercises Supine Exercises quick pelvic floor contractions Reps/Minutes x 10 reps 2 sec on and 2 sec off piriformis stretch Supine Exercise Name HEP reviewed modified squat stretch Supine Exercise Name HEP reviewed pelvic floor long holds Reps/Minutes x reps holding 10 sec and releasing 10 sec Self-Care/Home Management Treatment Education Patient Education Home Exercise Program Other Education review of toileting stratagies and importance of pelvic floor relaxation for full bladder emptying. HEP was reviewed. PT-OP-T Assessment and Plan Start: 02/22/23 12:04 Freq: Status: Active Protocol: Document 03/22/23 10:33 [facility] (Rec: 03/22/23 11:04 [facility] [id number]) Physical Therapy Assessment Goals 3 Impairment Nocturia with patient waking up 4 times per night to void Jail Goal (LTG) Cherry reports a reduction of urinary urgency and is able to decrease her night time voidings from 4 times per night to 1-2 times per night GOAL MET LTG Duration 8 weeks 2 Impairment incomplete bladder emptying with residual urgnecy Short Term Goal (STG) Cherry is educated on toileting strategies to help with fully voiding as well, bladder retraining, and relaxation of the pelvic floor with stretches GOAL MET STG Duration 4 weeks Photonics Technician Goal (LTG) Cherry is able to fully empty her bladder when voiding and has decreased complaints of urgency good progress LTG Duration 8 weeks 1 Impairment Decreased endurance of the pelvic floor muscles Short Term Goal (STG) Cherry is able to sustain a pelvic floor contraction in supine for 10 seconds goal met STG Duration 4 weeks Photonics Technician Goal (LTG) Cherry is able to sustain a pelvic floor contraction in standing x 5 seconds LTG Duration 8 weeks Assessment Summary Assessment Today's visit was short due to Cherry feeling Ind with her HEP and not wishing to do EMG biofeedback for pelvic floor. SHe notes she will continue using the estrogen cream and doing her exercises. nocturia is decreased to 1-2 times per night. She is still feeling irritated in her pelvic floor tissue with intercourse. I have encouraged her to continue with her HEP and stretches for the pelvic floor to promote full bladder emptying. Physical Therapy Plan Discharge Physical Therapy Discharge Reasons Patient Request Discharge Comments Cherry notes she is feeling Indpendent with her HEP and is ready to DC
== END 2023-03-24 07:32 | disposition home or self-care (01) ==
LOC: PHYS 10:30
PROVIDERS: PCP Family Medicine; Referring Provider Family Medicine; Visit Provider Family Medicine
DX: R39.11 Hesitancy of micturition (principal); R35.1 Nocturia; M99.05 Segmental and somatic dysfunction of pelvic region
CPT/HCPCS: 97110; 97161; 97535

== ENCOUNTER → 2023-03-31 11:37 | Outpatient (CLI) | payer MEDICARE, SELFPAY ==
[2023-03-31 13:00] LABS: Appearance Urine UA CLEAR; Bilirubin Urine UA NEGATIVE (NEGATIVE); Color Urine UA YELLOW; Glucose Urine UA NEGATIVE (Negative); Ketones Urine UA NEGATIVE (NEGATIVE); Leukocyte Esterase Urine UA NEGATIVE (NEGATIVE); Nitrite Urine UA NEGATIVE (Negative); Occult Blood Urine UA TRACE-INTACT (Negative); Protein Urine UA NEGATIVE (Negative); Urobilinogen Urine UA 0.2 E.U./dL (0.2)
[2023-03-31 13:06] LABS: pH Urine UA 5.5 (4.5-8.0)
[2023-03-31 13:11] LABS: Bacteria Urine None Seen; Culture Indicated Urine Cult Not Indicated; RBC Urine None Seen (0-5/HPF); Squamous Epithelial Cell Urine 5-10 /HPF (0-5/HPF); WBC Urine None Seen (0-5/HPF)
== END ==
PROVIDERS: PCP Family Medicine; Referring Provider Family Medicine; Visit Provider Family Medicine
DX: R30.0 Dysuria (principal)
CPT/HCPCS: 81001

== ENCOUNTER → 2023-09-07 08:03 | Outpatient (CLI) | payer MEDICARE, SELFPAY ==
[2023-09-07 09:00] LABS: Influenza A - CEPHEID Flu A NEGATIVE (NEGATIVE); Influenza B - CEPHEID Flu B NEGATIVE (NEGATIVE); Respiratory Syncytial Virus Negative (Negative)
[2023-09-07 09:46] LABS: COVID-19 CEPHEID 4-PLEX PCR Negative (Negative)
== END ==
PROVIDERS: PCP Family Medicine; Visit Provider Nurse Practitioner Family
DX: J06.9 Acute upper respiratory infection, unspecified (principal)
CPT/HCPCS: 0241U

== ENCOUNTER → 2023-12-13 09:59 | Outpatient (CLI) | payer MEDICARE, SELFPAY ==
[2023-12-14 08:01] LABS: Cholesterol HDL Ratio 3.3
[2023-12-14 08:02] LABS: VLDL Cholesterol Cal 31
[2023-12-14 08:03] LABS: LDL Cholesterol Cal 114
[2023-12-14 08:04] LABS: HDL Cholesterol 62; Triglycerides 182
[2023-12-14 08:05] LABS: Cholesterol,Total 207
== END ==
PROVIDERS: PCP Family Medicine; Referring Provider Family Medicine; Visit Provider Family Medicine
DX: E78.2 Mixed hyperlipidemia (principal)
CPT/HCPCS: 36415; 80061

== ENCOUNTER → 2024-02-22 12:36 | Outpatient (CLI) | payer MEDICARE, SELFPAY ==
--- NOTE | 2024-02-22 12:37 | DI.RAD.S_ITS ---
PROCEDURE: XR DEXA AXIAL SKELETON INDICATIONS: MENOPAUSE COMPARISON: [facility], CR, XR DEXA AXIAL SKELETON, 12/07/2020, 10:59. FINDINGS: Lumbar Spine: Bone mineral density 0.918 g/cm2, T score -0.9, prior performed on a different unit, cannot compare for statistically significant change. Left Hip: Bone mineral density 0.779 g/cm2, T score -1.3, prior performed on a different unit. Left Femoral Neck: Bone mineral density 0.645 g/cm2, T score -1.8. Right Hip: Bone mineral density 0.855 g/cm2, T score -0.7, prior performed on a different unit. Right Femoral Neck: Bone mineral density 0.706 g/cm2, T score -1.3. Fracture Risk Calculation (when applicable): 10-year fracture risk of a major osteoporotic fracture 24 percent and of a hip fracture 14 percent. (T score greater or equal to -1.0 to: NORMAL) (T score from -1.1 to -2.4: OSTEOPENIA) (T score less than or equal to -2.5: OSTEOPOROSIS) IMPRESSION: 1. By WHO (World Health Organization) criteria, this patient has low bone density (osteopenia) with an associated 10 year probability of major osteoporosis related fracture of greater than 20% and/or a 10 year probability of hip fracture > 3 % 2. Cannot compare to previous study for statistically significant interval change, as the prior was performed on a different unit. Follow-up guidelines as follows: Osteoporosis: Consider a repeat DEXA and Vertebral Fracture Assessment (VFA) exam in 2 years or sooner if medically necessary, to reassess this patient's status. Osteopenia: Consider a repeat DEXA in 2-3 years to reassess this patient's status, or if there is a new clinical indication. Normal: Consider a repeat DEXA in 5 years or sooner, or if there is a new clinical indication. All treatment decisions require clinical judgment and consideration of individual patient factors, including patient preferences, comorbidities, previous drug use, risk factors not captured in the FRAX model (e.g., frailty, falls, vitamin D deficiency, increased bone turnover, interval significant decline in bone density ) and possible under- or over-estimation of fracture risk by FRAX. In addition, the NOF Guide recommends that FDA-approved medical therapies be considered in postmenopausal women and men age >= 50 years with a: * Hip or vertebral (clinical or morphometric) fracture * T-score of <=-2.5 at the spine or hip * Ten-year fracture probability by FRAX of >= 3% for hip fracture or >=20% for major osteoporotic fracture. People with diagnosed cases of osteoporosis or at high risk for fracture should have regular bone mineral density tests. For patients eligible for Medicare, routine testing is allowed once every 2 years. The testing frequency can be increased to one year for patients who have rapidly progressing disease, those who are receiving or discontinuing medical therapy to restore bone mass, or have additional risk factors. Dictated by: Brian Boswell M.D. on 02/23/2024 at 10:02 Approved by: Brian Boswell M.D. on 02/23/2024 at 10:10
== END ==
PROVIDERS: Family Provider Family Medicine; PCP Family Medicine; Referring Provider Family Medicine; Visit Provider Family Medicine
DX: M81.0 Age-related osteoporosis without current pathological fracture (principal)
CPT/HCPCS: 77080

== ENCOUNTER 2024-03-28 11:30 | Outpatient (RCR) | payer MEDICARE, SELFPAY ==
--- NOTE | 2024-03-18 17:51 | PT.OIE ---
Current Diagnoses Benign paroxysmal vertigo, bilateral (03/18/24) Past Medical History (Last Updated 05/20/20 @ 08:53 by Syeda Robin, RN) Breast implant status Colon polyps Fractured skull GERD (gastroesophageal reflux disease) Past Surgical History (Last Updated 05/20/20 @ 08:52 by Syeda Robin, RN) History of cholecystectomy History of facial surgery History of fundoplication History of hysterectomy History of rotator cuff surgery History of sinus surgery Visit Care Team Role Provider Type Mckenzie Mann MD Attending Provider Non-Staff Family Provider Primary Care Provider Referring Provider Specialty: Family Practice Address: [address] [place] [address], [id number] Email: Physical Therapy Initial Evaluation PT-OP-A Visit Information Start: 03/18/24 17:42 Freq: Status: Active Protocol: Document 03/18/24 17:00 DCW (Rec: 03/18/24 17:47 DCW [id number]) Out-Patient Physical Therapy Visit Information Visit Information Visit Type Initial Evaluation Visit Start Time 17:00 Visit Stop Time 17:40 Visit Number 1 Number of SANDBLAST OR SHOTBLAST EQUIPMENT TENDER Visits 0 Evaluation Information Evaluation Date 03/18/24 PT-OP-B Current Condition Start: 03/18/24 17:42 Freq: Status: Active Protocol: Document 03/18/24 17:00 DCW (Rec: 03/18/24 17:47 DCW [id number]) Current Condition History of Current Condition Onset Date Intermittent over multiple years Current Complaints Positional dizziness History of Current Condition Pt is a 78 year old female complaining of a multi-year history of motion-induced vertigo. Pt reports episodes last a few minutes. Symptoms are provoked by positional changes. Pt denies recent hearing changes, tinnitus, dysarthria, discoordination, or decreased mentation/ consciousness. Pt reports symptoms are waxing/waning in nature. Pt denies hx of diabetes, arrhythmia, seizure, migraines, back/neck problems , CVA, anxiety/panic disorders , depression, or excessive smoking or drinking. Does wear prism glasses secondary to diplopia. PT-OP-C Subjective Start: 03/18/24 17:42 Freq: Status: Active Protocol: Document 03/18/24 17:00 DCW (Rec: 03/18/24 17:47 DCW [id number]) OP-PT Subjective Patient Comments Patient Comments Pt would like to learn how to best treat/cope with dizziness . Patient Questionnaires Dizziness Handicap Inventory DHI Score 30% DHI Functional Impairment 20 to 39% Impaired (Score 20- 39) PT-OP-O Vestibular Start: 03/18/24 17:42 Freq: Status: Active Protocol: Document 03/18/24 17:00 DCW (Rec: 03/18/24 17:47 DCW [id number]) Vestibular Assessment Auditory Tests Morales Test Within normal limits Rinne Test Negative Air Conduction Results Equal Visual Testing Smooth Pursuits Horizontal WNL Smooth Pursuits Vertical WNL Saccades Horizontal WNL Heave Test Positive Bilateral Thrust Head Positive Bilateral Positional Testing [place]-Hallpike Positive Left,Negative Right, Upbeating,< 60 Seconds PT-OP-Q Treatments Start: 03/18/24 17:42 Freq: Status: Active Protocol: Document 03/18/24 17:00 DCW (Rec: 03/18/24 17:51 DCW [id number]) Canalithic Repositioning BPPV Treatment Forrest Affected Canal(s) Left Posterior Reps x2 Comments Modified Forrest PT-OP-T Assessment and Plan Start: 03/18/24 17:42 Freq: Status: Active Protocol: Document 03/18/24 17:00 DCW (Rec: 03/18/24 17:51 DCW [id number]) Physical Therapy Assessment Rehab Potential Rehabilitation Potential Excellent Evaluation Complexity Number of Personal Factors/Comorbidities 0 Number of Body Systems Impaired 1-2 Clinical Presentation at Evaluation Unstable Impairments Impairments Balance,Vestibular Goals 2 Impairment Positive left [place]-Hallpike Test Impairment . Skilled Nursing Goal (LTG) Pt to present with negative positional testing bilaterally LTG Duration 04/18/24 1 Impairment Pt experiences intermittent dizziness with bed mobility Impairment . Short Term Goal (STG) Pt to report no further positional dizziness over one full week STG Duration 04/01/24 Assessment Summary Assessment During left [place]-Hallpike test, pt complained of vertigo and demonstrated up-beating, torsional nystagmus lasting approximately 15 seconds, consistent with diagnosis of left-sided posterior canal BPPV, canalithiasis-type. Pt was treated with a left-sided modified Forrest maneuver. Pt complained of symptoms in the first and third position, which is normally indicative of a successful treatment. Further positional testing was mildly positive, so a second modified Forrest was performed. Pt was educated on BPPV, expectations for treatment, possible recurrence (BPPV has a ~50% recurrence rate in the five years following treatment ), and post-Forrest restrictions . Pt to return in ~1 week for a follow-up appointment, and intermittently afterward as indicated for treatment of BPPV. Physical Therapy Plan Frequency and Duration Frequency of Treatment 2x/Week Plan of Care Start Date 03/18/24 Plan of Care End Date 04/18/24 Therapeutic Interventions Therapeutic Interventions Balance Training,Canalithic Repositioning,Home Exercise Program,Joint Mobilizations, Manual Therapy,Neuromuscular Re-education,Patient/Caregiver Education,Self-Care/Home Management,Vestibular Rehabilitation Next Visit Focus/Plan Next Note Type Treatment Note Next Visit Plan Positional testing, CRM as indicated
--- NOTE | 2024-03-18 17:52 | PT.OPPOC ---
Physical, Occupational & Speech Therapy At [facility] Current Diagnoses Benign paroxysmal vertigo, bilateral (03/18/24) Visit Care Team Role Provider Type Mckenzie Mann MD Attending Provider Non-Staff Family Provider Primary Care Provider Referring Provider Specialty: Family Practice Address: [address] [place] [address], [id number] Email: Plan Of Care PT-OP-B Current Condition Start: 03/18/24 17:42 Freq: Status: Active Protocol: Document 03/18/24 17:00 DCW (Rec: 03/18/24 17:47 DCW [id number]) Current Condition History of Current Condition Onset Date Intermittent over multiple years Current Complaints Positional dizziness History of Current Condition Pt is a 78 year old female complaining of a multi-year history of motion-induced vertigo. Pt reports episodes last a few minutes. Symptoms are provoked by positional changes. Pt denies recent hearing changes, tinnitus, dysarthria, discoordination, or decreased mentation/ consciousness. Pt reports symptoms are waxing/waning in nature. Pt denies hx of diabetes, arrhythmia, seizure, migraines, back/neck problems , CVA, anxiety/panic disorders , depression, or excessive smoking or drinking. Does wear prism glasses secondary to diplopia. PT-OP-T Assessment and Plan Start: 03/18/24 17:42 Freq: Status: Active Protocol: Document 03/18/24 17:00 DCW (Rec: 03/18/24 17:51 DCW [id number]) Physical Therapy Assessment Rehab Potential Rehabilitation Potential Excellent Evaluation Complexity Number of Personal Factors/Comorbidities 0 Number of Body Systems Impaired 1-2 Clinical Presentation at Evaluation Unstable Impairments Impairments Balance,Vestibular Goals 2 Impairment Positive left Franklin-Hallpike Test Impairment . Intermediate Goal (LTG) Pt to present with negative positional testing bilaterally LTG Duration 04/18/24 1 Impairment Pt experiences intermittent dizziness with bed mobility Impairment . Short Term Goal (STG) Pt to report no further positional dizziness over one full week STG Duration 04/01/24 Assessment Summary Assessment During left Franklin-Hallpike test, pt complained of vertigo and demonstrated up-beating, torsional nystagmus lasting approximately 15 seconds, consistent with diagnosis of left-sided posterior canal BPPV, canalithiasis-type. Pt was treated with a left-sided modified Forrest maneuver. Pt complained of symptoms in the first and third position, which is normally indicative of a successful treatment. Further positional testing was mildly positive, so a second modified Forrest was performed. Pt was educated on BPPV, expectations for treatment, possible recurrence (BPPV has a ~50% recurrence rate in the five years following treatment ), and post-Forrest restrictions . Pt to return in ~1 week for a follow-up appointment, and intermittently afterward as indicated for treatment of BPPV. Physical Therapy Plan Frequency and Duration Frequency of Treatment 2x/Week Plan of Care Start Date 03/18/24 Plan of Care End Date 04/18/24 Therapeutic Interventions Therapeutic Interventions Balance Training,Canalithic Repositioning,Home Exercise Program,Joint Mobilizations, Manual Therapy,Neuromuscular Re-education,Patient/Caregiver Education,Self-Care/Home Management,Vestibular Rehabilitation Next Visit Focus/Plan Next Note Type Treatment Note Next Visit Plan Positional testing, CRM as indicated Plan of Care Dates Plan of Care Start Date 03/18/24 Plan of Care End Date 04/18/24 Electronically Signed by: Yuval Nicholas, PT 03/18/24 [id number] If you are in agreement with this Plan of Care, please return a signed and dated copy. I have reviewed this Plan of Care and certify that the skilled therapy services above are required to meet the patient?s needs. Physician Signature Date Printed Name and Credentials Clinical Instructor Signature Printed Name and Credentials
--- NOTE | 2024-03-22 12:01 | PT.OTN ---
Current Diagnoses Benign paroxysmal vertigo, bilateral (03/22/24) Physical Therapy Treatment Note PT-OP-A Visit Information Start: 03/18/24 17:42 Freq: Status: Active Protocol: Document 03/22/24 11:30 DCW (Rec: 03/22/24 11:59 DCW [id number]) Out-Patient Physical Therapy Visit Information Visit Information Visit Type Treatment Note Visit Start Time 11:30 Visit Stop Time 11:45 Visit Number 2 Number of GREEN BUILDING ENGINEER Visits 0 Evaluation Information Evaluation Date 03/18/24 PT-OP-B Current Condition Start: 03/18/24 17:42 Freq: Status: Active Protocol: Document 03/18/24 17:00 DCW (Rec: 03/18/24 17:47 DCW [id number]) Current Condition History of Current Condition Onset Date Intermittent over multiple years Current Complaints Positional dizziness History of Current Condition Pt is a 78 year old female complaining of a multi-year history of motion-induced vertigo. Pt reports episodes last a few minutes. Symptoms are provoked by positional changes. Pt denies recent hearing changes, tinnitus, dysarthria, discoordination, or decreased mentation/ consciousness. Pt reports symptoms are waxing/waning in nature. Pt denies hx of diabetes, arrhythmia, seizure, migraines, back/neck problems , CVA, anxiety/panic disorders , depression, or excessive smoking or drinking. Does wear prism glasses secondary to diplopia. PT-OP-C Subjective Start: 03/18/24 17:42 Freq: Status: Active Protocol: Document 03/22/24 11:30 DCW (Rec: 03/22/24 11:59 DCW [id number]) OP-PT Subjective Patient Comments Patient Comments Pt has been a touch symptomatic since last visit PT-OP-O Vestibular Start: 03/18/24 17:42 Freq: Status: Active Protocol: Document 03/22/24 11:30 DCW (Rec: 03/22/24 11:59 DCW [id number]) Vestibular Assessment Positional Testing [place]-Hallpike Positive Left,Negative Right, Upbeating,< 60 Seconds PT-OP-Q Treatments Start: 03/18/24 17:42 Freq: Status: Active Protocol: Document 03/22/24 11:30 DCW (Rec: 03/22/24 11:59 DCW [id number]) Manual Therapy Treatment Other Other Manual Treatments Positional testing Canalithic Repositioning BPPV Treatment Forrest Affected Canal(s) Left Posterior Reps x2 Comments Modified Forrest PT-OP-T Assessment and Plan Start: 03/18/24 17:42 Freq: Status: Active Protocol: Document 03/22/24 11:30 DCW (Rec: 03/22/24 11:59 DCW [id number]) Physical Therapy Assessment Impairments Impairments Balance,Vestibular Goals 2 Impairment Positive left Franklin-Hallpike Test Impairment . Supervisor Plastics Goal (LTG) Pt to present with negative positional testing bilaterally LTG Duration 04/18/24 1 Impairment Pt experiences intermittent dizziness with bed mobility Impairment . Short Term Goal (STG) Pt to report no further positional dizziness over one full week STG Duration 04/01/24 Assessment Summary Assessment Pt continues to demonstrate mild symptoms with left [place]- Hallpike testing. Modified Forrest as performed, further testing was negative. Pt to follow-up next week for retesting. Physical Therapy Plan Frequency and Duration Frequency of Treatment 2x/Week Plan of Care Start Date 03/18/24 Plan of Care End Date 04/18/24 Therapeutic Interventions Therapeutic Interventions Balance Training,Canalithic Repositioning,Home Exercise Program,Joint Mobilizations, Manual Therapy,Neuromuscular Re-education,Patient/Caregiver Education,Self-Care/Home Management,Vestibular Rehabilitation Next Visit Focus/Plan Next Note Type Treatment Note Next Visit Plan Positional testing, CRM as indicated
--- NOTE | 2024-03-28 11:51 | PT.OTN ---
Current Diagnoses Benign paroxysmal vertigo, bilateral (03/28/24) Physical Therapy Treatment Note PT-OP-A Visit Information Start: 03/18/24 17:42 Freq: Status: Active Protocol: Document 03/28/24 11:30 DCW (Rec: 03/28/24 11:50 DCW [id number]) Out-Patient Physical Therapy Visit Information Visit Information Visit Type Treatment Note Visit Start Time 11:30 Visit Stop Time 11:50 Visit Number 3 Number of MACHINE STOPPAGE FREQUENCY CHECKER Visits 0 Evaluation Information Evaluation Date 03/18/24 PT-OP-B Current Condition Start: 03/18/24 17:42 Freq: Status: Active Protocol: Document 03/18/24 17:00 DCW (Rec: 03/18/24 17:47 DCW [id number]) Current Condition History of Current Condition Onset Date Intermittent over multiple years Current Complaints Positional dizziness History of Current Condition Pt is a 78 year old female complaining of a multi-year history of motion-induced vertigo. Pt reports episodes last a few minutes. Symptoms are provoked by positional changes. Pt denies recent hearing changes, tinnitus, dysarthria, discoordination, or decreased mentation/ consciousness. Pt reports symptoms are waxing/waning in nature. Pt denies hx of diabetes, arrhythmia, seizure, migraines, back/neck problems , CVA, anxiety/panic disorders , depression, or excessive smoking or drinking. Does wear prism glasses secondary to diplopia. PT-OP-C Subjective Start: 03/18/24 17:42 Freq: Status: Active Protocol: Document 03/28/24 11:30 DCW (Rec: 03/28/24 11:50 DCW [id number]) OP-PT Subjective Patient Comments Patient Comments Not too bad, still there a little bit. PT-OP-O Vestibular Start: 03/18/24 17:42 Freq: Status: Active Protocol: Document 03/28/24 11:30 DCW (Rec: 03/28/24 11:50 DCW [id number]) Vestibular Assessment Positional Testing [place]-Hallpike Positive Left,Negative Right, Upbeating,< 60 Seconds PT-OP-Q Treatments Start: 03/18/24 17:42 Freq: Status: Active Protocol: Document 03/28/24 11:30 DCW (Rec: 03/28/24 11:50 DCW [id number]) Canalithic Repositioning BPPV Treatment Forrest Affected Canal(s) Left Posterior Comments Modified Forrest PT-OP-T Assessment and Plan Start: 03/18/24 17:42 Freq: Status: Active Protocol: Document 03/28/24 11:30 DCW (Rec: 03/28/24 11:50 DCW [id number]) Physical Therapy Assessment Impairments Impairments Balance,Vestibular Goals 2 Impairment Positive left Franklin-Hallpike Test Impairment . Structures Assembler Goal (LTG) Pt to present with negative positional testing bilaterally LTG Duration 04/18/24 1 Impairment Pt experiences intermittent dizziness with bed mobility Impairment . Short Term Goal (STG) Pt to report no further positional dizziness over one full week STG Duration 04/01/24 Assessment Summary Assessment Pt noted very mild rotational vertigo with no visible associated nystagmus. Modified left Forrest was performed, pt felt better afterward. Pt happy with current level of symptoms, therapist recommended leaving chart open at this time, will discharge in one month if pt has not experienced a recurrence of symptoms. Physical Therapy Plan Frequency and Duration Frequency of Treatment 2x/Week Plan of Care Start Date 03/18/24 Plan of Care End Date 04/18/24 Therapeutic Interventions Therapeutic Interventions Balance Training,Canalithic Repositioning,Home Exercise Program,Joint Mobilizations, Manual Therapy,Neuromuscular Re-education,Patient/Caregiver Education,Self-Care/Home Management,Vestibular Rehabilitation Next Visit Focus/Plan Next Note Type Treatment Note Next Visit Plan Positional testing, CRM as indicated
--- NOTE | 2025-01-13 12:41 | PT.OPDS ---
Current Diagnoses Benign paroxysmal vertigo, bilateral (03/28/24) Visit Care Team Role Provider Type Mckenzie Mann MD Attending Provider Non-Staff Family Provider Primary Care Provider Referring Provider Specialty: Family [facility] Address: [address] [place] [address], [id number] Email: Visit Number Visit Number 3 Discharge Summary PT-OP-T Assessment and Plan Start: 03/18/24 17:42 Freq: Status: Active Protocol: Document 01/13/25 12:39 DCW (Rec: 01/13/25 12:41 DCW [id number]) Physical Therapy Assessment Assessment Summary Assessment At time of last session, pt agreed to phone for follow- up within one month if symptoms were still present. Pt has not call for a new appointment, will be discharged from vestibular therapy at this time. Physical Therapy Plan Discharge Physical Therapy Discharge Reasons No Longer Attending PT
== END 2025-01-14 10:12 | disposition home or self-care (01) ==
LOC: PHYS 11:30
PROVIDERS: Family Provider Family Medicine; PCP Family Medicine; Referring Provider Family Medicine; Visit Provider Family Medicine
DX: H81.13 Benign paroxysmal vertigo, bilateral (principal)
CPT/HCPCS: 95992; 97161

== ENCOUNTER → 2024-08-27 12:43 | Outpatient (CLI) | payer MEDICARE, SELFPAY ==
--- NOTE | 2024-08-27 12:46 | DI.MG.S_ITS ---
MM screening mammo implant BI: 08/27/2024. BI-RADS: 2 CLINICAL: 78-year old female for bilateral screening mammogram. Tyrer-Cuzick lifetime risk of 2.9%. No personal or first-degree family history of breast cancer. The patient has bilateral implants. PRIOR EXAMS: 09/26/2022, 09/13/2021, 09/11/2020, 09/10/2019. MAMMOGRAPHY TECHNIQUE: 2D and 3D (tomosynthesis) digital mammographic views obtained, with additional images as needed for full coverage. Current study was also evaluated with a Computer Aided Detection (CAD) system. DENSITY D. The breasts are extremely dense, which lowers the sensitivity of mammography. IMPLANTS Breast implants present. MAMMOGRAPHY FINDINGS Bilateral: Typically-benign vascular calcifications noted. IMPRESSION: * No evidence of malignancy with benign findings. RECOMMENDATIONS Bilateral * Annual screening mammography. OVERALL ASSESSMENT CATEGORY BI-RADS-2: Benign. The [employer] recommends annual screening mammography beginning at age 40 for women with average risk of breast cancer. ELECTRONICALLY SIGNED: Gabino Fernandez M.D. on 08/27/2024 at 05:09:02 PM PT Interpreting Station ID: [id number]
== END ==
PROVIDERS: Family Provider Family Medicine; PCP Family Medicine; Referring Provider Family Medicine; Visit Provider Family Medicine
DX: Z12.31 Encounter for screening mammogram for malignant neoplasm of breast (principal); R92.333 Mammographic heterogeneous density, bilateral breasts; R92.1 Mammographic calcification found on diagnostic imaging of breast; Z98.82 Breast implant status
CPT/HCPCS: 77063; 77067

== ENCOUNTER → 2025-01-13 10:08 | Outpatient (CLI) | payer MEDICARE, SELFPAY ==
[2025-01-13 10:59] LABS: Add Manual Diff / Slide Review NO; Hematocrit 39.5 % (36-46); Hemoglobin 13.8 g/dL (12.0-16.0); Lymphocytes Absolute Auto 1600 /uL (1100-4500); Mean Corpuscular HGB Conc 34.8 % (30-36); Mean Corpuscular Hemoglobin 34.5 PG (26-34); Mean Corpuscular Volume 99.0 fL (80-100); Platelet Count 319 X10^3/uL (150-400)
[2025-01-13 11:26] LABS: Alanine Aminotransferase 15 IU/L (<35); Albumin 4.4 g/dL (3.5-5.0); Albumin Globulin Ratio 1.6 (1.0-2.8); Alkaline Phosphatase 71 U/L (38-126); Blood Urea Nitrogen 24 mg/dL (7-17); Calcium 9.6 mg/dL (8.4-10.2); Carbon Dioxide 26 mmol/L (22-32); Chloride 105 mmol/L (98-107); Cholesterol 213 mg/dL (140-199); Estimated Glomerular Filt Rate > 60 mL/min (>60); Globulin 2.8 g/dL (1.7-4.1); Glucose 92 mg/dL (70-99); HDL Cholesterol 71 mg/dL (40-60); HEMOLYSIS < 15 (0-50); Potassium 4.5 mmol/L (3.4-5.1); Sodium 139 mmol/L (137-145); Total Protein 7.2 g/dL (6.3-8.2); Triglycerides 133 mg/dL (35-150)
[2025-01-13 11:53] LABS: TSH w/ Reflex to FT4 1.27 uIU/mL (0.47-4.68)
== END ==
PROVIDERS: Family Provider Family Medicine; PCP Family Medicine; Referring Provider Family Medicine; Visit Provider Family Medicine
DX: E78.2 Mixed hyperlipidemia (principal)
CPT/HCPCS: 36415; 80053; 80061; 84443; 85025